=== PATIENT | female | born 1995 | race Caucasian/White ===

== ENCOUNTER 2016-12-04 09:36 | Emergency (ER) | payer SELFPAY ==
[2016-12-04 10:00] VITALS: TEMP 97.9; BMI 28.3
[2016-12-04] MEDS ORDERED: methylPREDNISolone NA SUCC 125 MG/2 ML VIAL IVPB ONE (10:34)
[2016-12-04] MEDS ORDERED: SODIUM CHLORIDE 1,000 ML IV STA (10:34)
--- NOTE | 2016-12-04 10:34 | PDOC ---
History of Present Illness - History of Present Illness Initial Comments: 12/04/16 10:43 Patient is a 21 year old female with significant medical hx of asthma who has been sent to the ED by Dr. Beal for cough and chest tightness for four days. Patient complains of cough with associated chest tightness and congestion that has worsened over the past several days. The patient states that her symptoms have made it difficult for her to talk. She endorses some chills and an episode of nausea and vomiting that occurred yesterday. The patient saw her PMD today in the office where she received O2 and albuterol. She was sent to the ED because her symptoms persist. Patient received the flu shot this year. Denies sick contacts, swelling. NKDA <Kinsey Cabrera - Last Filed: 12/04/16 12:39> <Nataly Chadwick - Last Filed: 12/04/16 17:09> - General Chief Complaint: Asthma Stated Complaint: ASTHMA Time Seen by Provider: 12/04/16 09:51 Past History <Kinsey Cabrera - Last Filed: 12/04/16 12:39> - Past Medical History Asthma: Yes - Psycho/Social/Smoking Cessation Hx Anxiety: No Suicidal Ideation: No Smoking History: Never smoked Have you smoked in the past 12 months: No Information on smoking cessation initiated: No Hx Alcohol Use: No Drug/Substance Use Hx: No Substance Use Type: None <Nataly Chadwick - Last Filed: 12/04/16 17:09> - Past Medical History Allergies/Adverse Reactions: Allergies Allergy/AdvReac Type Severity Reaction Status Date / Time No Known Allergies Allergy Verified 12/04/16 10:54 Home Medications: Ambulatory Orders Albuterol Sulfate Inhaler - [Ventolin HFA Inhaler -] 1 - 2 inh PO QID PRN #1 inhaler 12/04/16 Prednisone [Deltasone -] 40 mg PO DAILY #8 tablet 12/04/16 Review of Systems - Review of Systems Comments:: 12/04/16 10:43 GENERAL/CONSTITUTIONAL: No fever or chills. No weakness. HEAD, EYES, EARS, NOSE AND THROAT: No change in vision. No ear pain or discharge. No sore throat. CARDIOVASCULAR: Chest tightness. No shortness of breath. RESPIRATORY: Cough. No wheezing or hemoptysis. GASTROINTESTINAL: Nausea, vomiting. No diarrhea or constipation. MUSCULOSKELETAL: No joint or muscle swelling or pain. No neck or back pain. SKIN: No rash NEUROLOGIC: No headache, vertigo, loss of consciousness, or change in strength/ sensation. <RickKinsey heath - Last Filed: 12/04/16 12:39> *Physical Exam - Vital Signs Last Vital Signs Temp Pulse Resp BP Pulse Ox 97.9 F 115 H 24 130/65 100 12/04/16 09:53 12/04/16 09:53 12/04/16 09:53 12/04/16 09:53 12/04/16 09:53 <Kinsey Cabrera - Last Filed: 12/04/16 12:39> - Vital Signs Last Vital Signs Temp Pulse Resp BP Pulse Ox 97.9 F 115 H 24 130/65 100 12/04/16 09:53 12/04/16 09:53 12/04/16 09:53 12/04/16 09:53 12/04/16 09:53 - Physical Exam Comments: GENERAL: Awake, alert, and fully oriented, in no acute distress HEAD: No signs of trauma EYES: PERRLA, EOMI, sclera anicteric, conjunctiva clear ENT: Auricles normal inspection, hearing grossly normal, nares patent, oropharynx clear without exudates. Moist mucosa NECK: Normal ROM, supple, no lymphadenopathy, JVD, or masses LUNGS: Breath sounds equal, with scattered rhonchi. HEART: Tachycardic with regular rhythm, normal S1 and S2, no murmurs, rubs or gallops ABDOMEN: Soft, nontender, normoactive bowel sounds. No guarding, no rebound. No masses EXTREMITIES: Normal range of motion, no edema. No clubbing or cyanosis. No cords, erythema, or tenderness NEUROLOGICAL: Cranial nerves II through XII grossly intact. Normal speech, normal gait SKIN: Warm, Dry, normal turgor, no rashes or lesions noted. <Nataly Chadwick - Last Filed: 12/04/16 17:09> ED Treatment Course - LABORATORY CBC & Chemistry Diagram: 12/04/16 10:36 12/04/16 10:36 - RADIOLOGY Radiograph Interpretation: 12/04/16 12:39 Chest X-Ray Impression: No acute pathology. Weak inspiration with crowding. Reported By: Mu Garay MD <Kinsey Cabrera - Last Filed: 12/04/16 12:39> - LABORATORY CBC & Chemistry Diagram: 12/04/16 10:36 12/04/16 10:36 <Nataly Chadwick - Last Filed: 12/04/16 17:09> Medical Decision Making - Medical Decision Making 12/04/16 12:55 Pt reports improvement in her symptoms. Flu swab negative (and patient is afebrile), CXR no consolidation. Stable for DC home with short course of prednisone and albuterol. <Nataly Chadwick - Last Filed: 12/04/16 17:09> *DC/Admit/Observation/Transfer - Attestations Scribe Attestion: 12/04/16 10:47 Documentation prepared by Kinsey Cabrera, acting as certified ophthalmic medical technician for Nataly Chadwick MD. <Kinsey Cabrera - Last Filed: 12/04/16 12:39> - Discharge Dispostion Admit: No <Nataly Chadwick - Last Filed: 12/04/16 17:09> Diagnosis at time of Disposition: Asthma Qualifiers: Asthma severity: mild intermittent Asthma complication type: with acute exacerbation Qualified Code(s): J45.21 - Mild intermittent asthma with (acute) exacerbation - Discharge Dispostion Disposition: HOME Condition at time of disposition: Improved - Prescriptions Prescriptions: Prednisone [Deltasone -] 40 mg PO DAILY #8 tablet Albuterol Sulfate Inhaler - [Ventolin HFA Inhaler -] 1 - 2 inh PO QID PRN #1 inhaler PRN Reason: Short Of Breath/Wheezing - Referrals Referrals: Bryon Gongora MD [Primary Care Provider] - - Patient Instructions Printed Discharge Instructions: DI for Asthma -- Adult
[2016-12-04 11:01] LABS: BASOPHIL 0.2 % (0-2.0); EOSINOPHIL 1.3 % (0-4.5); MCH 29.4 pg (25.7-33.7); MCHC 32.8 g/dl (32.0-36.0); MEAN CELL VOLUME 89.4 fl (80-96); MEAN PLT VOLUME 9.6 fl (7.5-11.1); NEUTROPHILS 73.3 % (42.8-82.8); PLATELET COUNT 185 K/MM3 (134-434); RDW 13.5 % (11.6-15.6); WHITE BLOOD COUNT 11.4 K/mm3 (4.0-10.0)
[2016-12-04 11:27] LABS: ALBUMIN 3.7 g/dl (3.4-5.0); ALK PHOS 75 U/L (45-117); ANION GAP 10 (8-16); BILIRUBIN,TOTAL 0.2 mg/dL (0.2-1.0); CALCIUM 8.4 mg/dL (8.5-10.1); CO2 25 mmol/L (21-32); CREATININE 0.7 mg/dL (0.55-1.02); GLUCOSE,RANDOM 105 mg/dL (74-106); SGOT/AST 19 U/L (15-37); SGPT/ALT 35 U/L (12-78); TOT PROT 7.2 g/dl (6.4-8.2)
[2016-12-04] MEDS: ALBUTEROL SO4 2.5/IPRATROPIUM 0.5 INH SOL 3 ML VIAL.NEB. NEB SCH ×3 (11:30→11:44)
[2016-12-04] MEDS ORDERED: ALBUTEROL SO4 2.5/IPRATROPIUM 0.5 INH SOL 3 ML VIAL.NEB. NEB ONE (11:39)
[2016-12-04 13:06] VITALS: BP 104/60; PULSE 90
== END 2016-12-04 13:06 | disposition home or self-care (01) ==
LOC: JER 09:36
PROC: 3E0F7GC Introduction of Other Therapeutic Substance into Respiratory Tract, Via Natural or Artificial Opening (ICD-10-PCS; principal; 2016-12-04)
PROC: 3E0333Z Introduction of Anti-inflammatory into Peripheral Vein, Percutaneous Approach (ICD-10-PCS; 2016-12-04)
DX: J45.20 Mild intermittent asthma, uncomplicated (principal)
CPT/HCPCS: 36415; 71020-TC; 80053; 84703; 85025; 87804; 99282-25

== ENCOUNTER 2017-11-14 02:28 | Emergency (ER) | payer SELFPAY ==
[2017-11-14 02:45] VITALS: BP 116/83; PULSE 72; TEMP 97.8; BMI 29.4
[2017-11-14 03:32] LABS: URINE APPEARANCE CLEAR; URINE BILIRUBIN NEGATIVE (NEGATIVE); URINE BLOOD NEGATIVE (NEGATIVE); URINE COLOR COLORLESS; URINE GLUCOSE (UA) NEGATIVE (NEGATIVE); URINE KETONE NEGATIVE (NEGATIVE); URINE LEUK ESTERASE NEGATIVE (NEGATIVE); URINE NITRITE NEGATIVE (NEGATIVE); URINE PROTEIN NEGATIVE (NEGATIVE); URINE UROBILINOGEN NEGATIVE mg/dL (0.2-1.0)
--- NOTE | 2017-11-14 03:33 | PDOC ---
History of Present Illness - General Chief Complaint: Pain Stated Complaint: ABD PAIN Time Seen by Provider: 11/14/17 02:50 History Source: Patient Exam Limitations: No Limitations - History of Present Illness Initial Comments: CHIEF COMPLAINT: 22 y/o afebrile female c/o right sided abdominal pain today. HISTORY OF PRESENT ILLNESS: The patient states the pain started dull and gradually became sharp. She states the pain is intermittent and is holding her right flank while giving history. . She also admits to nausea. She denies f/c , v/d, CP, SOB, back pain, hematuria, dysuria. Vital signs on arrival are within normal limits. REVIEW OF SYSTEMS: GENERAL/CONSTITUTIONAL: No fever/chills. No weakness. No weight change. HEAD, EYES, EARS, NOSE AND THROAT: No change in vision. No ear pain or discharge. No sore throat. CARDIOVASCULAR: No chest pain or shortness of breath. RESPIRATORY: No cough, wheezing, or hemoptysis. GASTROINTESTINAL: +nausea. +right sided abdominal pain. No vomiting, diarrhea. GENITOURINARY: No dysuria, frequency, or change in urination. MUSCULOSKELETAL: No joint or muscle swelling or pain. No neck or back pain. SKIN: No rash or easy bruising. NEUROLOGIC: No headache, vertigo, loss of consciousness, or loss of sensation. PHYSICAL EXAM: GENERAL: The patient is awake, alert, and fully oriented, in no acute distress. She is well appearing and ambulatory. HEAD: Normal with no signs of trauma. ENT: Pupils equal, round and reactive to light, extraocular movements intact, sclera anicteric, conjunctiva clear. Neck supple. LUNGS: Clear to auscultation bilaterally. Normal excursion. No respiratory distress or use of accessory muscles. CV: RRR, S1/S2, no MRG. Cap refill < 2 sec. ABDOMEN: Soft, non-distended, TTP right flank and right pelvic region. No rebound, guarding or rigidity. Negative Rovsing's sign. Negative obturator sign. BACK: No CVA TTP b/l. EXTREMITIES: Normal range of motion, no edema. NEUROLOGICAL: Normal speech, normal gait. CN II-XII grossly intact. SKIN: Warm, dry, normal turgor, no rashes or lesions noted. Past History - Past Medical History Allergies/Adverse Reactions: Allergies Allergy/AdvReac Type Severity Reaction Status Date / Time No Known Allergies Allergy Verified 11/14/17 02:43 Home Medications: Ambulatory Orders NK [No Known Home Medication] 11/14/17 Asthma: Yes - Suicide/Smoking/Psychosocial Hx Smoking History: Never smoked Have you smoked in the past 12 months: No Information on smoking cessation initiated: No Hx Alcohol Use: No Drug/Substance Use Hx: No Substance Use Type: None *Physical Exam - Vital Signs Last Vital Signs Temp Pulse Resp BP Pulse Ox 97.8 F 72 14 116/83 100 11/14/17 02:43 11/14/17 02:43 11/14/17 02:43 11/14/17 02:43 11/14/17 02:43 ED Treatment Course - LABORATORY CBC & Chemistry Diagram: 11/14/17 03:33 11/14/17 03:33 Medical Decision Making - Medical Decision Making A/P: 22 y/o female with right flank, RLQ and right pelvic pain today. Plan is as follows: 1. UA/culture/hcg 2. Labs hcg - negative IV toradol ordered Patient states she feels much better after toradol. She also admits the pain continues to come and go. Gave results of her urine and labs Explained to her the risks vs benefits of a CT scan to r/o appendicitis. Suspicion is low given normal labs, afebrile, no vomiting and relatively benign abdominal exam. Suggested discharge to home with watchful waiting and the patient is in agreement. Suggested bland diet, plenty of fluids, tylenol or motrin for pain and return to the ER immediately with any worsening or concerning symptoms including fever, intractable vomiting or constant abdominal pain. The patient verbalizes understanding of all instructions, has no further questions and is awaiting discharge. *DC/Admit/Observation/Transfer Diagnosis at time of Disposition: Flank pain Abdominal pain Qualifiers: Abdominal location: unspecified location Qualified Code(s): R10.9 - Unspecified abdominal pain - Discharge Dispostion Disposition: HOME Condition at time of disposition: Improved - Referrals - Patient Instructions Printed Discharge Instructions: DI for Abdominal Pain-Adult, DI for Flank Pain , [place] Diet Additional Instructions: Discharge Instructions: -Follow bland diet for the next few days -Take tylenol or motrin for pain if needed -Drink plenty of fluids -Return to the ER immediately with any worsening or concerning symptoms, including but not limited to: fever, intractable vomiting, constant abdominal pain. - Post Discharge Activity
[2017-11-14] MEDS ORDERED: SODIUM CHLORIDE 1,000 ML IV STA (03:36)
[2017-11-14 03:41] LABS: BASO % 0.4 % (0-2.0); EOS % 6.5 % (0-4.5); HEMATOCRIT 38.9 % (32.4-45.2); HEMOGLOBIN 13.1 GM/dL (10.7-15.3); MCH 29.9 pg (25.7-33.7); MCHC 33.7 g/dl (32.0-36.0); MEAN CELL VOLUME 88.7 fl (80-96); MEAN PLT VOLUME 9.6 fl (7.5-11.1); NEUT % 48.1 % (42.8-82.8); PLATELET COUNT 226 K/MM3 (134-434); RBC 4.39 M/mm3 (3.60-5.2)
--- NOTE | 2017-11-14 03:44 | PDOC ---
*Physical Exam - Vital Signs Last Vital Signs Temp Pulse Resp BP Pulse Ox 97.8 F 72 14 116/83 100 11/14/17 02:43 11/14/17 02:43 11/14/17 02:43 11/14/17 02:43 11/14/17 02:43 ED Treatment Course - LABORATORY CBC & Chemistry Diagram: 11/14/17 03:33 11/14/17 03:33 - ADDITIONAL ORDERS Additional order review: Laboratory Results 11/14/17 00:31 Urine Color Colorless Urine Appearance Clear Urine pH 6.0 Ur Specific [place] 1.005 Urine Protein Negative Urine Glucose (UA) Negative Urine Ketones Negative Urine Blood Negative Urine Nitrite Negative Urine Bilirubin Negative Urine Urobilinogen Negative Ur Leukocyte Esterase Negative 11/14/17 03:33 RBC 4.39 MCV 88.7 MCHC 33.7 RDW 13.0 MPV 9.6 Neutrophils % 48.1 D Lymphocytes % 40.0 D Monocytes % 5.0 Eosinophils % 6.5 H D Basophils % 0.4 Medical Decision Making - Medical Decision Making 11/14/17 03:44 agree with care from BERHTA Rapp *DC/Admit/Observation/Transfer Diagnosis at time of Disposition: Abdominal pain, Flank pain - Discharge Dispostion Disposition: HOME Condition at time of disposition: Improved - Referrals - Patient Instructions Printed Discharge Instructions: [place] Diet, DI for Abdominal Pain-Adult, DI for Flank Pain Additional Instructions: Discharge Instructions: -Follow bland diet for the next few days -Take tylenol or motrin for pain if needed -Drink plenty of fluids -Return to the ER immediately with any worsening or concerning symptoms, including but not limited to: fever, intractable vomiting, constant abdominal pain. - Post Discharge Activity
[2017-11-14 03:45] LABS: HCG,QUALITATIVE URINE NEGATIVE
[2017-11-14 04:08] LABS: ALBUMIN 3.5 g/dl (3.4-5.0); ANION GAP 9 (8-16); BILIRUBIN,TOTAL 0.1 mg/dL (0.2-1.0); BLOOD UREA NITROGEN 10 mg/dL (7-18); CALCIUM 7.7 mg/dL (8.5-10.1); CHLORIDE 106 mmol/L (98-107); CO2 26 mmol/L (21-32); CREATININE 0.7 mg/dL (0.55-1.02); GLUCOSE,RANDOM 96 mg/dL (74-106); SGOT/AST 18 U/L (15-37); SGPT/ALT 48 U/L (12-78); SODIUM 141 mmol/L (136-145); TOT PROT 6.7 g/dl (6.4-8.2)
[2017-11-14 04:09] LABS: ALK PHOS 73 U/L (45-117)
[2017-11-14] MEDS ORDERED: KETOROLAC TROMETHAMINE 30 MG/1 ML VIAL IVPUSH ONE (04:52)
[2017-11-14] MEDS ORDERED: KETOROLAC TROMETHAMINE 30 MG/1 ML VIAL ONE (05:00)
== END 2017-11-14 05:52 | disposition home or self-care (01) ==
LOC: JER 02:28
PROC: 3E0337Z Introduction of Electrolytic and Water Balance Substance into Peripheral Vein, Percutaneous Approach (ICD-10-PCS; principal; 2017-11-14)
PROC: 3E0333Z Introduction of Anti-inflammatory into Peripheral Vein, Percutaneous Approach (ICD-10-PCS; 2017-11-14)
DX: R10.31 Right lower quadrant pain (principal)
CPT/HCPCS: 36415; 80053; 81003; 84703; 85025; 87086; 99282-25; J7030

== ENCOUNTER 2018-05-13 17:37 | Inpatient (IN) | payer OTHER ==
--- NOTE | 2018-05-13 18:17 | PDOC ---
Rapid Medical Evaluation Chief Complaint: Pain, Acute Time Seen by Provider: 05/13/18 18:07 Medical Evaluation: Allergies Allergy/AdvReac Type Severity Reaction Status Date / Time No Known Allergies Allergy Verified 11/14/17 02:43 05/13/18 18:09 I have performed a brief in-person evaluation of this patient. The patient presents with a chief complaint of: RLQ pain since 3AM, sent from [facility] for CT- labs and US done with no noted pathology in Uterus/ ovaries/ Here to R/O APPY Pertinent physical exam findings: pale, Abd pain to lower quad with some rebound./ I have ordered the following: has labs with her, will order CT contrast, and UA/ UCG The patient will proceed to the ED for further evaluation. Discharge Disposition - Referrals Referrals: Suresh Brambila MD [Primary Care Provider] - - Patient Instructions - Post Discharge Activity
[2018-05-13 18:47] LABS: BASO % 0.2 % (0-2.0); EOS % 4.1 % (0-4.5); HEMATOCRIT 41.7 % (32.4-45.2); HEMOGLOBIN 13.7 GM/dL (10.7-15.3); LYMPH % 25.9 % (8-40); MCH 29.1 pg (25.7-33.7); MCHC 32.8 g/dl (32.0-36.0); MEAN CELL VOLUME 88.8 fl (80-96); MEAN PLT VOLUME 9.8 fl (7.5-11.1); MONO % 4.1 % (3.8-10.2); NEUT % 65.7 % (42.8-82.8); PLATELET COUNT 271 K/MM3 (134-434); RDW 13.4 % (11.6-15.6); WHITE BLOOD COUNT 12.3 K/mm3 (4.0-10.0)
[2018-05-13 18:51] LABS: HCG,QUALITATIVE URINE Negative
[2018-05-13 19:00] LABS: URINE APPEARANCE SLCLOUDY; URINE BILIRUBIN NEGATIVE (<2.0 mg/dL); URINE COLOR YELLOW; URINE GLUCOSE (UA) NEGATIVE (NEGATIVE); URINE KETONE TRACE (NEGATIVE); URINE NITRITE NEGATIVE (NEGATIVE); URINE UROBILINOGEN NEGATIVE mg/dL (0.2-1.0)
[2018-05-13 19:11] LABS: ALBUMIN 4.1 g/dl (3.4-5.0); ALK PHOS 86 U/L (45-117); ANION GAP 8 MMOL/L (8-16); BILIRUBIN,TOTAL 0.5 mg/dL (0.2-1.0); BLOOD UREA NITROGEN 11 mg/dL (7-18); CALCIUM 8.9 mg/dL (8.5-10.1); CHLORIDE 105 mmol/L (98-107); CO2 28 mmol/L (21-32); CREATININE 0.7 mg/dL (0.55-1.02); GLUCOSE,RANDOM 85 mg/dL (74-106); LIPASE 70 U/L (73-393); SGOT/AST 25 U/L (15-37); SGPT/ALT 61 U/L (12-78); SODIUM 141 mmol/L (136-145); TOT PROT 7.8 g/dl (6.4-8.2)
[2018-05-13 19:12] LABS: URINE LEUK ESTERASE 1+ (NEGATIVE); URINE PROTEIN 1+ (NEGATIVE)
[2018-05-13 19:14] LABS: EPI CELLS RARE /HPF (FEW); URINE BACTERIA RARE /hpf (NONE SEEN); URINE MUCUS RARE; YEAST FEW
[2018-05-13] MEDS ORDERED: SODIUM CHLORIDE 1,000 ML IV STA ×2 (19:37→23:23)
[2018-05-13] MEDS ORDERED: ACETAMINOPHEN 1000 MG/100 ML VIAL (NON FORMULARY) IVPB ONE (19:39)
--- NOTE | 2018-05-13 19:41 | PDOC ---
Attending Attestation - Resident Resident Name: Hesham Ricketts - ED Attending Attestation I have performed the following: I have examined & evaluated the patient, The case was reviewed & discussed with the resident, I agree w/resident's findings & plan, Exceptions are as noted - HPI HPI: 05/13/18 19:37 22 yo F who is otherwise healthy presenting to the ER with a complaint of RLQ pain Radiating to RL back Started at 3am Initially 6/10 now 8/10 Nausea, vomiting, no diarrhea Recent UTI, denies hematuria, pyuria Seen at an Urgent care s/p US with was negative - Physicial Exam PE: 05/13/18 19:37 GENERAL: The patient is in no acute distress. LUNGS: Breath sounds equal, clear to auscultation bilaterally. No wheezes, and no crackles. HEART:Regular rate and rhythm, normal S1 and S2 without murmur, rub or gallop. ABDOMEN: Soft, RLQ tenderness to palpation, no involuntary guarding or rebound EXTREMITIES: Normal range of motion, no edema. No clubbing or cyanosis. No erythema, or tenderness. NEUROLOGICAL: Cranial nerves II through XII grossly intact. Normal speech. No focal neurological deficits. MUSCULOSKELETAL: Back non-tender to palpation, no CVA tenderness SKIN: Warm, Dry, normal turgor, no rashes or lesions noted. - Medical Decision Making 05/13/18 19:39 22 yo F presenting with a complaint of RLQ pain No fevers or chills No urinary symptoms to suggest UTI, Pyelonephtiris, Kidney stone No to suggest Ectopic R/o Appendicitis 05/13/18 19:41 Laboratory Tests 05/13/18 05/13/18 05/13/18 18:20 18:20 18:20 WBC 12.3 H Hgb 13.7 Hct 41.7 Plt Count 271 BUN 11 Creatinine 0.7 Urine Blood 1+ H Urine Nitrite Negative Ur Leukocyte Esterase 1+ H Urine WBC (Auto) 39 Urine RBC (Auto) 37 Urine HCG, Qual Negative Pending CT 05/13/18 23:22 CT demonstrates possible early acute appendicitis Dr Heraclio Westfall consulted re: this case and is aware of this patient Call placed to Hospitalist Clinical Impression: Acute Appendicitis, initial presentation
[2018-05-13] MEDS ORDERED: ACETAMINOPHEN INJECTION 100 ML IVPB ONE (20:39)
--- NOTE | 2018-05-13 20:53 | PDOC ---
History of Present Illness - General Chief Complaint: Pain, Acute Stated Complaint: SENT BY PCP Time Seen by Provider: 05/13/18 18:07 History Source: Patient Exam Limitations: No Limitations - History of Present Illness Initial Comments: 05/13/18 21:47 Ms. Sotelo is a 22 yo F with a no pmhx presents to the emergency department with RLQ pain that has been ongoing since 3am today. She states the pain has been progressively worsening and now has radiation to her right lower back. Quality is described as 8/10 sharp pain without aggravating and relieving factors. She had a UTI last that was treated with OTC medications. Endorses the following: nausea and vomiting 2x episodes today without hematemesis. Denies the following: fever, chills, dizziness, lightheadedness, headache, SOB, chest pain, diarrhea, dysuria, hematuria, melena, and leg pain/ swelling. Pmhx: None Shx: None Allergies: NKDA Medications: None Social hx: Denies tobacco, alcohol, and substance use. 05/13/18 21:51 Past History - Past Medical History Allergies/Adverse Reactions: Allergies Allergy/AdvReac Type Severity Reaction Status Date / Time No Known Allergies Allergy Verified 11/14/17 02:43 Home Medications: Ambulatory Orders Albuterol Sulfate Inhaler - [Ventolin Hfa Inhaler -] 1 - 2 inh PO Q4H 05/13/18 Anemia: No Asthma: Yes Cancer: No Cardiac Disorders: No CVA: No COPD: No DVT: No Dementia: No Diabetes: No Dialysis: No GI Disorders: No Disorders: No HTN: No Hypercholesterolemia: No Kidney Stones: No Liver Disease: No Psychiatric Problems: No Seizures: No Thyroid Disease: No Lung CA: No - Suicide/Smoking/Psychosocial Hx Smoking History: Never smoked Have you smoked in the past 12 months: No Hx Alcohol Use: No Drug/Substance Use Hx: No Substance Use Type: None Review of Systems - Review of Systems Able to Perform ROS?: Yes Constitutional: No: Chills, Diaphoresis, Fever, Night Sweats, Weakness HEENTM: No: Recent change in vision, Ear Pain, Nose Pain, Throat Pain, Mouth Pain Respiratory: No: Cough, Shortness of Breath Cardiac (ROS): No: Chest Pain, Lightheadedness, Palpitations, Syncope, Chest Tightness ABD/GI: Yes: Nausea, Vomiting (watery), Abdominal cramping. No: Constipated, Diarrhea, Poor Fluid Intake, Rectal Bleeding, Tarry Stools : Yes: Flank Pain (right). No: Burning, Dysuria, Hematuria Musculoskeletal: No: Back Pain Integumentary: No: Flushing, Lesions, Lumps, Rash Neurological: No: Headache, Numbness, Paresthesia, Tingling, Tremors, Weakness, Dizziness Psychiatric: No: Stressors Endocrine: No: Unexplained Weight Loss Hematologic/Lymphatic: No: Anemia *Physical Exam - Vital Signs Last Vital Signs Temp Pulse Resp BP Pulse Ox 98.8 F 85 20 124/79 97 05/13/18 18:11 05/13/18 18:11 05/13/18 18:11 05/13/18 18:11 05/13/18 18:11 - Physical Exam General Appearance: Yes: Nourished, Appropriately Dressed HEENT: positive: EOMI, LYNN Neck: positive: Trachea midline. negative: Lymphadenopathy (R), Lymphadenopathy (L) Respiratory/Chest: positive: Lungs Clear, Normal Breath Sounds. negative: Chest Tender, Respiratory Distress, Accessory Muscle Use, Rales, Rhonchi, Stridor, Wheezing Cardiovascular: positive: Regular Rhythm, Regular Rate, S1, S2. negative: Systolic Murmur Vascular Pulses: Dorsalis-Pedis (R): 3+, Doralis-Pedis (L): 3+ Gastrointestinal/Abdominal: positive: Normal Bowel Sounds, Tender (RLQ ttp. negative rosvings, obturator sign) Lymphatic: negative: Adenopathy Musculoskeletal: positive: Normal Inspection. negative: CVA Tenderness Extremity: positive: Normal Capillary Refill, Normal Inspection, Normal Range of Motion. 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, Fully Oriented, Alert, Normal Mood/ Affect, Normal Response, Motor Strength /5 ED Treatment Course - LABORATORY CBC & Chemistry Diagram: 05/14/18 07:08 05/14/18 07:08 - ADDITIONAL ORDERS Additional order review: Laboratory Results 05/13/18 05/13/18 18:20 18:20 Sodium 141 Potassium 4.0 Chloride 105 Carbon Dioxide 28 Anion Gap 8 BUN 11 Creatinine 0.7 Creat Clearance w eGFR > 60 Random Glucose 85 Calcium 8.9 Total Bilirubin 0.5 AST 25 ALT 61 Alkaline Phosphatase 86 Total Protein 7.8 Albumin 4.1 Lipase 70 L Urine Color Yellow Urine Appearance Slcloudy Urine pH 6.0 Ur Specific [place] 1.017 Urine Protein 1+ H Urine Glucose (UA) Negative Urine Ketones Trace H Urine Blood 1+ H Urine Nitrite Negative Urine Bilirubin Negative Urine Urobilinogen Negative Ur Leukocyte Esterase 1+ H Urine WBC (Auto) 39 Urine RBC (Auto) 37 Ur Epithelial Cells Rare Urine Bacteria Rare Urine Mucus Rare Urine Yeast Few Urine HCG, Qual Negative 05/13/18 18:20 RBC 4.70 MCV 88.8 MCHC 32.8 RDW 13.4 MPV 9.8 Neutrophils % 65.7 D Lymphocytes % 25.9 D Monocytes % 4.1 Eosinophils % 4.1 Basophils % 0.2 - Medications Given in the ED: ED Medications Discontinued Medications Generic Name Dose Route Start Last Admin Trade Name Freq PRN Reason Stop Dose Admin Acetaminophen 1,000 mg 05/13/18 19:39 05/13/18 20:47 Ofirmev Injection - IVPB 05/13/18 19:40 1,000 mg ONCE ONE Administration Sodium Chloride 1,000 mls @ 1,000 mls/hr 05/13/18 19:37 05/13/18 20:47 Normal Saline - IV 05/13/18 20:36 1,000 mls/hr ASDIR STA Administration Medical Decision Making - Medical Decision Making 05/13/18 22:07 22 yo F with no pmhx presents with RLQ pain with ttp in that region. Initial vitals: Initial Vital Signs Temp Pulse Resp BP Pulse Ox 98.8 F 85 20 124/79 97 05/13/18 18:11 05/13/18 18:11 05/13/18 18:11 05/13/18 18:11 05/13/18 18:11 ddx: appendicitis, ileitis, ovarian torsion, ovarian cyst, ectopic, PID, UTI, nephrolithiasis, msk pain Work up: Laboratory Tests 05/13/18 05/13/18 05/13/18 18:20 18:20 18:20 WBC 12.3 H RBC 4.70 Hgb 13.7 Hct 41.7 MCV 88.8 MCH 29.1 MCHC 32.8 RDW 13.4 Plt Count 271 MPV 9.8 Absolute Neuts (auto) 8.1 H Neutrophils % 65.7 D Lymphocytes % 25.9 D Monocytes % 4.1 Eosinophils % 4.1 Basophils % 0.2 Nucleated RBC % 0 PT with INR INR Sodium 141 Potassium 4.0 Chloride 105 Carbon Dioxide 28 Anion Gap 8 BUN 11 Creatinine 0.7 Creat Clearance w eGFR > 60 Random Glucose 85 Calcium 8.9 Total Bilirubin 0.5 AST 25 ALT 61 Alkaline Phosphatase 86 Total Protein 7.8 Albumin 4.1 Lipase 70 L Urine Color Yellow Urine Appearance Slcloudy Urine pH 6.0 Ur Specific [place] 1.017 Urine Protein 1+ H Urine Glucose (UA) Negative Urine Ketones Trace H Urine Blood 1+ H Urine Nitrite Negative Urine Bilirubin Negative Urine Urobilinogen Negative Ur Leukocyte Esterase 1+ H Urine WBC (Auto) 39 Urine RBC (Auto) 37 Ur Epithelial Cells Rare Urine Bacteria Rare Urine Mucus Rare Urine Yeast Few Urine HCG, Qual Negative Blood Type Antibody Screen 05/13/18 05/13/18 22:10 22:10 WBC RBC Hgb Hct MCV MCH MCHC RDW Plt Count MPV Absolute Neuts (auto) Neutrophils % Lymphocytes % Monocytes % Eosinophils % Basophils % Nucleated RBC % PT with INR 13.00 INR 1.15 H Sodium Potassium Chloride Carbon Dioxide Anion Gap BUN Creatinine Creat Clearance w eGFR Random Glucose Calcium Total Bilirubin AST ALT Alkaline Phosphatase Total Protein Albumin Lipase Urine Color Urine Appearance Urine pH Ur Specific [place] Urine Protein Urine Glucose (UA) Urine Ketones Urine Blood Urine Nitrite Urine Bilirubin Urine Urobilinogen Ur Leukocyte Esterase Urine WBC (Auto) Urine RBC (Auto) Ur Epithelial Cells Urine Bacteria Urine Mucus Urine Yeast Urine HCG, Qual Blood Type A POSITIVE Antibody Screen Negative CT showed possibly early acute appendicitis. Transvaginal US showed no ovarian pathologies (this was done at [facility] urgent care) save for bicornuate uterus. We consulted Dr. Westfall for surgery and he accepted the case and asked for no antibiotics and to be admitted. Given 1 g of tylenol and 1 L of NS. Pt understands the plan and agrees. Dispo: admit *DC/Admit/Observation/Transfer Diagnosis at time of Disposition: Appendicitis Qualifiers: Appendicitis type: acute appendicitis Acute appendicitis type: unspecified acute appendicitis type Qualified Code(s): K35.80 - Unspecified acute appendicitis - Discharge Dispostion Decision to Admit order: Yes - Referrals - Patient Instructions - Post Discharge Activity
[2018-05-13 22:32] LABS: INR 1.15 (0.83-1.09)
[2018-05-13] MEDS ORDERED: PIPERACILLIN/TAZOB 4.5 GM 4.5 GM in DEXTROSE 5%-WATER 100 ML IVPB ONE (23:23)
--- NOTE | 2018-05-13 23:33 | PN ---
Teaching Attending Note Name of Resident: Beverly Arthur ATTENDING PHYSICIAN STATEMENT I saw and evaluated the patient. I reviewed the resident's note and discussed the case with the resident. I agree with the resident's findings and plan as documented. SUBJECTIVE: Patient is a 22 year old woman with no significant PMH who presents to the ER with RLQ pain that has been ongoing since 3am today. She states the pain has been progressively worsening and now has radiation to her right lower back. Quality is described as 8/10 sharp pain without aggravating and relieving factors. She had a UTI last that was treated with cranberry extract. In November 2017 she was in the ER with complaint of similar RLQ pain and was given an analgesic and discharged from the ER. She has nausea and vomited twice today. LMP was earlier this month but does not remember the exact date. Denies fever, chills, diarrhea or dysuria. No abnormal vaginal discharge. OBJECTIVE: Alert Vital Signs Period Temp Pulse Resp BP Sys/[place] Pulse Ox Last 24 Hr 98.8 F 85 20 124/79 97 HEENT: No Jaundice, eye redness or discharge, PERRLA, EOMI. Normocephalic, atraumatic. External ears are normal and hearing is grossly intact. No nasal discharge. Neck: Supple, nontender. No palpable adenopathy or thyromegaly. No JVD Chest: Good effort. Clear to auscultation and percussion. Heart: Regular. No S3, rub or murmur Abdomen: Not distended, soft, RLQ tenderness and no HSM. No rebound or guarding. Normoactive bowel sounds. Ext: Peripheral pulses intact. No leg edema. Skin: Warm and dry. No petechiae, rash or ecchymosis. Neuro: Alert. Oriented x3. CN 2-12 grossly intact. Sensation grossly intact in all four extremities and DTR are symmetric. Pelvic exam: No cervical motion tenderness. Has a cheesy white discharge but not foul smelling. Current Medications Generic Name Dose Route Start Last Admin Trade Name Freq PRN Reason Stop Dose Admin Piperacillin Sod/Tazobactam 100 mls @ 200 mls/hr 05/13/18 23:23 Sod 4.5 gm/ Dextrose IVPB 05/13/18 23:52 ONCE ONE Protocol Sodium Chloride 1,000 mls @ 125 mls/hr 05/13/18 23:23 Normal Saline - IV 05/14/18 07:22 ASDIR STA Home Medications Medication Instructions Recorded Albuterol Sulfate Inhaler - 1 - 2 inh PO Q4H 05/13/18 [Ventolin Hfa Inhaler -] Abnormal Lab Results 05/13/18 05/13/18 05/13/18 18:20 18:20 18:20 WBC 12.3 H Absolute Neuts (auto) 8.1 H INR Lipase 70 L Urine Protein 1+ H Urine Ketones Trace H Urine Blood 1+ H Ur Leukocyte Esterase 1+ H 05/13/18 22:10 WBC Absolute Neuts (auto) INR 1.15 H Lipase Urine Protein Urine Ketones Urine Blood Ur Leukocyte Esterase ASSESSMENT AND PLAN: 1. UTI/Appendicitis? - CT scan of the abdomen shows possible early appendicitis. Surgeon consulted and recommended withholding antibiotics for now. Will be evaluated by surgeon in the morning. Has features of UTI and will treat with Rocephin after patient is evaluated by surgeon. Got one dose of Zosyn 4.5 gm in the ER. Cultures sent for chlamydia and gonorrhea to rule out PID. Significance of retroperitoneal and mesenteric adenopathy is unclear. Also has ?idiopathic hepatic steatosis. Will consult hematology, GI and ID. 2. Obesity - Will provide patient all the necessary assistance, counseling and positive reinforcement to facilitate weight loss. Consult selector packer. 3. DVT prophylaxis - Lovenox 40 mg SQ q 24 hours. 4. Advance directives - Full code
[2018-05-13] MEDS ORDERED: PIPERACILLIN/TAZOB 4.5 GM 4.5 GM/100 ML BAG IVPB ONE (23:53)
[2018-05-14] MEDS ORDERED: ACETAMINOPHEN 1000 MG/100 ML VIAL (NON FORMULARY) IVPB PRN ×2 (00:45→11:54)
[2018-05-14] MEDS ORDERED: MORPHINE SULFATE 2 MG/ML VIAL IVPUSH PRN (00:46)
--- NOTE | 2018-05-14 02:38 | HP ---
CHIEF COMPLAINT: RLQ Abdominal Pain PCP: HISTORY OF PRESENT ILLNESS: 22 y/o female with PMHx of Asthma presents, along side her boyfriend, for Abdominal Pain. Patient says she was awoken at 3am with Sharp, Throbbing, 8/ 10 RLQ pain that radiated to the Right lower back. This morning, she also experienced Chills, Nausea accompanied with brown vomit. This is the first time she has experienced this pain. She says the pain has been worsening and she visited [facility] where labs were drawn and TVUS was done. At that time, the Urgent care was concerned for possible appendicitis and suggested patient visit [facility] ED. Her pain is currently 6/10. Patient has been unable to identify any triggers. Her last meal was yesterday and she has not been able to tolerate PO intake today. Otherwise she denies any other dietary changes. Her Last BM was this morning. Patient says her LMP ended early in April. She is sexually active with 1 partner and they do not use contraception. She denies any hx of STI/STDs and mentions she was tested a few months ago. She has had an x1 in the past , years ago. Of note, patient has been treating burning with urination since last with OTC Azo (Phenazopyridine HCl). She currently denies any Dysuria, hematuria , Urinary frequency or urgency. She mentions she had a UTI one year ago which self resolved without intervention. 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) Residence: At home with her boyfriend and his family Ambulation: On her own Family History: Mothers side: Cancer (Ovarian, Breast, Stomach), DM, HTN Allergies No Known Allergies Allergy (Verified 11/14/17 02:43) HOME MEDICATIONS: Home Medications Medication Instructions Recorded Albuterol Sulfate Inhaler - 1 - 2 inh PO Q4H 05/13/18 [Ventolin Hfa Inhaler -] REVIEW OF SYSTEMS CONSTITUTIONAL: Absent: fever, chills, diaphoresis, generalized weakness, malaise, loss of appetite, weight change HEENT: Absent: rhinorrhea, nasal congestion, throat pain, throat swelling, difficulty swallowing, mouth swelling, ear pain, eye pain, visual changes CARDIOVASCULAR: Absent: chest pain, syncope, palpitations, irregular heart rate, lightheadedness , peripheral edema RESPIRATORY: Absent: cough, shortness of breath, dyspnea with exertion, orthopnea, wheezing, stridor, hemoptysis GASTROINTESTINAL: Present: abdominal pain, nausea, vomiting, Absent: abdominal distension, diarrhea, constipation, melena, hematochezia GENITOURINARY: Absent: dysuria, frequency, urgency, hesitancy, hematuria, flank pain, genital pain MUSCULOSKELETAL: Absent: myalgia, arthralgia, joint swelling, back pain, neck pain SKIN: Absent: rash, itching, pallor HEMATOLOGIC/IMMUNOLOGIC: Absent: easy bleeding, easy bruising, lymphadenopathy, frequent infections ENDOCRINE: Absent: unexplained weight gain, unexplained weight loss, heat intolerance, cold intolerance NEUROLOGIC: Absent: headache, focal weakness or paresthesias, dizziness, unsteady gait, seizure, mental status changes, bladder or bowel incontinence PSYCHIATRIC: Absent: anxiety, depression, suicidal or homicidal ideation, hallucinations. PHYSICAL EXAMINATION Vital Signs - 24 hr 05/13/18 05/14/18 18:11 00:59 Temperature 98.8 F 97.9 F Pulse Rate 85 Pulse Rate [ 69 Right Radial] Respiratory 20 16 Rate Blood Pressure 124/79 Blood Pressure 96/57 [Left Arm] O2 Sat by Pulse 97 97 Oximetry (%) GENERAL: Awake, alert, and fully oriented, in no acute distress. HEAD: NCAT EYES: PERRL, EOMI THROAT: Oropharynx clear without exudates. Moist mucous membranes. NECK: No JVD LUNGS: Breath sounds equal, clear to auscultation bilaterally. No wheezes HEART: Regular rate and rhythm, normal S1 and S2 without murmur ABDOMEN: Soft, RLQ Tender to palpation , not distended, + bowel sounds, no guarding, no rebound tenderness, Negative Rovsings sign, Negative Psoas sign MUSCULOSKELETAL: No CVA tenderness. PELVIC EXAM: No Erythema in Vaginal vault, White exudate seen, No cervical motion tenderness, Uterus anteverted and Anteflexed EXTREMITIES: 2+ pulses, No calf tenderness. No peripheral edema. SKIN: Warm, dry, normal turgor, no rashes or lesions noted, normal capillary refill. Laboratory Results - last 24 hr 05/13/18 05/13/18 05/13/18 18:20 18:20 18:20 WBC 12.3 H RBC 4.70 Hgb 13.7 Hct 41.7 MCV 88.8 MCH 29.1 MCHC 32.8 RDW 13.4 Plt Count 271 MPV 9.8 Absolute Neuts (auto) 8.1 H Neutrophils % 65.7 D Lymphocytes % 25.9 D Monocytes % 4.1 Eosinophils % 4.1 Basophils % 0.2 Nucleated RBC % 0 PT with INR INR Sodium 141 Potassium 4.0 Chloride 105 Carbon Dioxide 28 Anion Gap 8 BUN 11 Creatinine 0.7 Creat Clearance w eGFR > 60 Random Glucose 85 Calcium 8.9 Total Bilirubin 0.5 AST 25 ALT 61 Alkaline Phosphatase 86 Total Protein 7.8 Albumin 4.1 Lipase 70 L Urine Color Yellow Urine Appearance Slcloudy Urine pH 6.0 Ur Specific [place] 1.017 Urine Protein 1+ H Urine Glucose (UA) Negative Urine Ketones Trace H Urine Blood 1+ H Urine Nitrite Negative Urine Bilirubin Negative Urine Urobilinogen Negative Ur Leukocyte Esterase 1+ H Urine WBC (Auto) 39 Urine RBC (Auto) 37 Ur Epithelial Cells Rare Urine Bacteria Rare Urine Mucus Rare Urine Yeast Few Urine HCG, Qual Negative Blood Type Antibody Screen 05/13/18 05/13/18 22:10 22:10 WBC RBC Hgb Hct MCV MCH MCHC RDW Plt Count MPV Absolute Neuts (auto) Neutrophils % Lymphocytes % Monocytes % Eosinophils % Basophils % Nucleated RBC % PT with INR 13.00 INR 1.15 H Sodium Potassium Chloride Carbon Dioxide Anion Gap BUN Creatinine Creat Clearance w eGFR Random Glucose Calcium Total Bilirubin AST ALT Alkaline Phosphatase Total Protein Albumin Lipase Urine Color Urine Appearance Urine pH Ur Specific [place] Urine Protein Urine Glucose (UA) Urine Ketones Urine Blood Urine Nitrite Urine Bilirubin Urine Urobilinogen Ur Leukocyte Esterase Urine WBC (Auto) Urine RBC (Auto) Ur Epithelial Cells Urine Bacteria Urine Mucus Urine Yeast Urine HCG, Qual Blood Type A POSITIVE Antibody Screen Negative ASSESSMENT/PLAN: 22 y/o female with PMHx of Asthma presents for Sharp, Throbbing, 8/10 RLQ pain that radiated to the Right lower back will be Admitted for possible Early Appendicitis. 1. RLQ Pain - Possibly due to her current UTI vs Early Appendicitis - CT A/P: Appendiceal wall demonstrates an equivocal, slightly hyperemic appearance - ObGyn (Dr. Landeros) consulted - Surgery (Dr. Westfall) Consulted, Recommended to ED to hold ABx for now and he will see her in the morning - Kept NPO for Pending surgical evaluation - Was given one dose Zosyn in the ED, Can consider Rocephin to treat UTI once surgery clears - Chlamydia, Gonorrhea cultures pending - Pain control via Tylenol (1-5) and Morphine (6-10) 2. FEN - PO Fluids - Lytes wnl - NPO for possible procedure in AM 3. PPx - DVT: Lovenox Dispo: Admit to med-surg Visit type - Emergency Visit Emergency Visit: Yes ED Registration Date: 05/13/18 Care time: The patient presented to the Emergency Department on the above date and was hospitalized for further evaluation of their emergent condition. - New Patient This patient is new to me today: Yes Date on this admission: 05/14/18 - Critical Care Critical Care patient: No Hospitalist Screening - Colonoscopy Questionnaire Colonoscopy Questionnaire: Colonoscopy Questionnaire - Patient: 50 - 75 years old and never had a screening colonoscopy: Unknown History of colon or rectal polyps, or CA: Unknown History of IBD, Crohn's disease or UC: Unknown History of abdominal radiation therapy as a child: Unknown - Relative: 1 with colon or rectal CA, or polyps at age 60 or younger: Unknown Colon or rectal CA diagnosed at age 45 or younger: Unknown Multiple relatives with colon or rectal CA: Unknown - Outcome: Screening Result: Negative Screen
[2018-05-14 07:33] LABS: BASO % 0.4 % (0-2.0); EOS % 6.2 % (0-4.5); HEMATOCRIT 37.7 % (32.4-45.2); HEMOGLOBIN 12.4 GM/dL (10.7-15.3); LYMPH % 29.6 % (8-40); MCH 29.2 pg (25.7-33.7); MCHC 32.8 g/dl (32.0-36.0); MEAN PLT VOLUME 10.4 fl (7.5-11.1); NEUT % 57.8 % (42.8-82.8); PLATELET COUNT 203 K/MM3 (134-434); RBC 4.24 M/mm3 (3.60-5.2); RDW 13.6 % (11.6-15.6); WHITE BLOOD COUNT 9.7 K/mm3 (4.0-10.0)
--- NOTE | 2018-05-14 07:45 | PN ---
Progress Note (short form) - Note Progress Note: pt admitted with above findings. No tool marker issues. Repeat TVUS if warranted
[2018-05-14 07:53] LABS: ALBUMIN 3.1 g/dl (3.4-5.0); ANION GAP 7 MMOL/L (8-16); BLOOD UREA NITROGEN 9 mg/dL (7-18); CHLORIDE 108 mmol/L (98-107); CO2 27 mmol/L (21-32); CREATININE 0.7 mg/dL (0.55-1.02); GLUCOSE,RANDOM 85 mg/dL (74-106); MAGNESIUM 2.2 mg/dL (1.8-2.4); PHOSPHOROUS 4.3 mg/dL (2.5-4.9); SGOT/AST 25 U/L (15-37); SGPT/ALT 47 U/L (12-78); SODIUM 142 mmol/L (136-145)
[2018-05-14 07:54] LABS: ALK PHOS 76 U/L (45-117); BILIRUBIN,TOTAL 0.6 mg/dL (0.2-1.0); TOT PROT 6.3 g/dl (6.4-8.2)
[2018-05-14] MEDS ORDERED: PIPERACILLIN/TAZOB 3.375 GM 3.375 GM in DEXTROSE 5%-WATER - 50 ML IVPB ONE (08:19)
[2018-05-14] MEDS ORDERED: ONDANSETRON 4 MG/2 ML VIAL IVPUSH PRN ×2 (08:49→09:56)
[2018-05-14] MEDS ORDERED: LACTATED RINGERS SOLUTION 1,000 ML IV SCH (09:00)
[2018-05-14] MEDS ORDERED: PIPERACILLIN/TAZOB 3.375 GM 3.375 GM/50 ML BAG IVPB ONE (09:12)
[2018-05-14] MEDS ORDERED: BUPIVACAINE HCL/PF 0.75% 10 ML VIAL ONE (09:13)
[2018-05-14] MEDS ORDERED: PROPOFOL 20 ML ONE (09:28)
[2018-05-14] MEDS ORDERED: MIDAZOLAM HCL 2 MG/2 ML SINGLE DOSE VIAL ONE (09:28)
[2018-05-14] MEDS ORDERED: ROCURONIUM BROMIDE 50 MG/5 ML VIAL ONE (09:28)
[2018-05-14] MEDS ORDERED: fentaNYL CITRATE 250 MCG/5 ML VIAL ONE (09:28)
--- NOTE | 2018-05-14 09:45 | PN ---
Progress Note (short form) - Note Progress Note: surgery pt seen and examined. full consult dictated. 22f rlq, nausea, leukocytosis, and ct showing abnormal appendix with hyperemia and 6mm. on exam rlq tenderness. wbc now normal after zosyn. mild uti. plan- likely early, appendicitis already improving on zosyn. pt agreable to surgery. will restart zosyn. for surgery. pt understands risk that appendix will be normal.
[2018-05-14] MEDS ORDERED: ALBUTEROL SO4 8 GM HFA INHALER IH PRN ×3 (09:53→16:47)
[2018-05-14] MEDS ORDERED: ACETAMINOPHEN 325 MG TABLET (FP) PO PRN (09:56)
[2018-05-14] MEDS ORDERED: oxyCODONE HCL 5 MG TABLET PO PRN (09:56)
[2018-05-14] MEDS ORDERED: ENOXAPARIN NA (PORCINE) 40 MG/0.4 ML DISP.SYRIN SQ SCH (10:00)
[2018-05-14] MEDS ORDERED: PIPERACILLIN/TAZOBACTAM 3.375 GM VIAL IVPB ONE (10:00)
--- NOTE | 2018-05-14 10:00 | OP ---
Operative Note - Note: Operative Date: 05/14/18 Pre-Operative Diagnosis: early acute appendicitis Operation: laparoscopic appedectomy Findings: mildly inflamed appendix Post-Operative Diagnosis: Same as Pre-op Surgeon: Mu Pisano Anesthesiologist/HAND COUNTER: Delio Luna Anesthesia: General Specimens Removed: appendix Estimated Blood Loss (mls): 10 Operative Report Dictated: Yes
[2018-05-14] MEDS ORDERED: DEXAMETHASONE SOD PHOSPHATE 4 MG/1 ML VIAL ONE (10:10)
[2018-05-14] MEDS ORDERED: NEOSTIGMINE METHYLSULFATE 0.5 MG/ML - 10 ML MDV ONE (10:34)
--- NOTE | 2018-05-14 10:50 | CONS ---
DATE OF CONSULTATION: 05/14/2018 REASON FOR CONSULTATION: Acute appendicitis. REQUESTING PHYSICIAN: This is an emergency room consultation requested by the emergency room physician. The patient was seen and examined in the emergency room. BRIEF HISTORY: This is a 22-year-old female without significant past medical history, who presents with 1-day right lower quadrant pain and nausea. She was sent from an urgent care center to the [facility] Emergency Room to rule out appendicitis. She was noted to have an elevated white blood cell count of 12,000, and had a CT scan of her abdomen and pelvis, which was showing a hyperemic 6-mm appendix, which could be consistent with early appendicitis. She was given antibiotic in the emergency room last night. Currently, she feels a little bit better, but not completely resolved, and her white blood cell count has returned to normal. She has had no fever. She still has decreased appetite. PAST MEDICAL HISTORY: Significant for asthma. PAST SURGICAL HISTORY: Nil. SOCIAL HISTORY: Positive for occasional alcohol consumption. FAMILY HISTORY: Negative for malignancy in the immediate family. ALLERGIES: She has no known drug allergies. HOME MEDICATIONS: Include albuterol. REVIEW OF SYSTEMS: General: Denies fatigue or malaise. Cardiac: Denies chest pain or palpitations. Respiratory: Denies shortness of breath or wheeze. Gastrointestinal: Denies diarrhea. Denies blood in her stool. Denies recent weight loss. Genitourinary: Denies dysuria. Musculoskeletal: Denies joint pain or joint swelling. Psychiatric: Denies anxiety, depression, or hearing voices. PHYSICAL EXAMINATION: General: This is an obese 22-year-old female in no distress. Vital signs: She is afebrile. Her vital signs are stable. HEENT: Her head is normocephalic. Her sclerae are anicteric. Neck: Supple. Chest: Clear. Abdomen: Soft. He has minimal right lower quadrant tenderness without guarding. She has perhaps a small ventral hernia at the central portion of her abdomen. Extremities: Have no edema. REVIEW OF LABORATORY DATA: White blood cell count is elevated at 12.3 with a shift of 8.1 absolute neutrophils. This morning, her labs are normal, but that was after receiving Zosyn antibiotic. On review of her, she has a CT scan of her abdomen and pelvis which the hole filler opines that there is a possibility of early subtle acute appendicitis. ASSESSMENT: This is a 22-year-old female with right lower quadrant pain, right lower quadrant tenderness, initial leukocytosis responding to intravenous antibiotic, and CT scan evidence of an abnormal appendix. Clinically, I cannot rule out early appendicitis, being treated on Zosyn. Obviously there is multiple differential in a young female. She does have a urinalysis that is consistent with a mild urinary tract infection, but I cannot place all of her symptoms on that. At this point, since I cannot rule out appendicitis, I have offered the patient surgery and she is agreeable. The advantage of surgery would be to rule out appendicitis/treat appendicitis. It also would rule out a neoplasm and remove future diagnostic uncertainty. If she had chosen to continue medical management or observation, in the future, she would need a colonoscopy and a repeat CT scan to ensure that her appendix appeared normal, and she was not willing to do that. At this point, will resume Zosyn antibiotic and treat for appendicitis. I will make plans for surgery. Risks and benefits of surgery have been explained to the patient in detail. These are including, but not limited to, the possibility of conversion to open, the possibility of injury to viscera or bladder, the possibility of blood loss requiring blood transfusion, the possibility of future obstruction, the possibility of future hernia, the possibility this is not appendicitis, plus a multitude of medical risks including, but not limited to, cardiac, neurologic, pulmonary, and vascular complications, even . The patient understands these risks and is agreeable to surgery. DO SEBASTIÁN PURCELL/[id number]
[2018-05-14] MEDS ORDERED: ACETAMINOPHEN INJECTION 100 ML IVPB ONE (11:39)
--- NOTE | 2018-05-14 11:50 | OP ---
DATE OF OPERATION: 05/14/2018 PREOPERATIVE DIAGNOSIS: Early Acute Appendicitis. POSTOPERATIVE DIAGNOSIS: Early Acute Appendicitis. PROCEDURE: Laparoscopic appendectomy and lavage. SURGEON: Mu Pisano DO SLIVER FORMER: There is no staffing assistant. ANESTHESIA: Delio Luna MD (general) BRIEF HISTORY: This is a 22-year-old female who was admitted to [facility] for possible early acute appendicitis. She had right lower quadrant pain and leukocytosis, and a CT scan normal appendix. She was started on antibiotics. She presents normal for surgery. DESCRIPTION OF PROCEDURE: The patient was placed in supine procedure. After general anesthesia was initiated, the abdomen was prepped and draped in sterile fashion. A Lockhart catheter was inserted. Next, a vertical incision was made infraumbilical with scalpel used to go through the skin and subcutaneous tissue. The fascia was then lifted with Caryn clamp and incised vertically. The peritoneum was then entered bluntly. Next, a 0 Vicryl stitch was placed across the fascial defect and used to secure the Razo trocar. Pneumoperitoneum was then created followed by insertion of a 5-mm 30-degree laparoscope. Next, two 5-mm trocars were placed, one in the left lower quadrant and one suprapubic. Attention was then turned towards the appendix. It was seen. It was mildly injected, consistent with early acute appendicitis. A window was made at its base. A LigaSure device was used to divide the mesoappendix with multiple welts. Then, an Ethicon Purple Load 60-mm stapler was used to divide the appendix at its base with the cecum in one firing. The staple line was inspected. It was intact. There was no bleeding, no breaks, no sign of ischemia. The appendix was placed in a specimen bag, removed through the infraumbilical trocar site and sent to Pathology marked as specimen. A limited lavage was done, and all return was clear. Both ovaries were inspected. There was no evidence of PID. The uterus appeared to be normal. There were no ovarian cysts, and the gallbladder was gloria-egg blue. At this point, trocars were removed under direct visualization, and no bleeding was noted as pneumoperitoneum was released. The fascia at the infraumbilical trocar site was then closed with multiple interrupted 0 Vicryl sutures, and the 3 skin incisions were closed with Biosyn, and Dermabond dressing was placed. Overall, the patient tolerated the procedure well. There were no complications. Lockhart catheter that was placed at the beginning of the operation was removed at the end, and the patient was sent to recovery room in stable condition. Blood loss was minimal. Appendix was the specimen. Drains none. DO SEBASTIÁN PURCELL/[id number] MTDD
[2018-05-14] MEDS: D5-1/2NS+20 MEQ KCL - 20 MEQ/1,000 ML INFUS.BAG IV SCH (13:30)
[2018-05-14] MEDS: morphine SULFATE 4 MG/ML VIAL IVPB PRN ×2 (14:16→21:23)
--- NOTE | 2018-05-14 14:38 | PN ---
Teaching Attending Note Name of Resident: Meliton Bentley ATTENDING PHYSICIAN STATEMENT I saw and evaluated the patient. I reviewed the resident's note and discussed the case with the resident. I agree with the resident's findings and plan as documented. SUBJECTIVE: seen in am , before her surgery. reported RLQ pain , no fever or chills. was at urgent care on 05/07 for same RLQ pain and was told she had mild UTI and was treated with cranberry juice. denies dysuria , or urinary frequency. no hematuria or change in urine color OBJECTIVE: NAD Cv: RRR Lungs: CTAB e xt: no edema Abd: soft , ND, TTP in RLQ, + Mcburney's . Neg Obturaor's , Neg Rovsing sign ASSESSMENT AND PLAN: 22 y/o lady with no significant PMH, who presented with RLQ pain and was found to have early acute appendicitis . 1- RLQ pain, due to early appendicitis. Now s/p appendectomy with signs of inflammation on visualization of appendix. - despite UA indicating pyuria , UI seems unlikely due to no urinary sx and due to above findings - will try to obtain more details about urgent care visit. - no need for Abx after appendectomy as there was no perforation or abscess - regular diet - pain control - IVF - home in am if cont to do well
--- NOTE | 2018-05-14 16:20 | PN ---
Physical Exam: SUBJECTIVE: Patient seen and examined at bedside. Complains of RLQ pain, no further n/v. Has had chills. OBJECTIVE: Vital Signs Period Temp Pulse Resp BP Sys/[place] Pulse Ox Last 24 Hr 97.9 F-98.8 F 57-85 15-20 96-124/57-89 97-100 GENERAL: A&Ox3, NAD HEAD: NC/AT EYES: PERRLA, EOMI ENT: oropharynx clear without exudates, moist mucous membranes NECK: Trachea midline, full range of motion, supple. LUNGS: CTA b/l HEART: RRR no m/r/g ABDOMEN: Soft, nondistended, tender in RLQ, tender at McBurney's point, neg Rovsing, neg Psoas, positive Obturator EXTREMITIES: 2+ pulses, warm, well-perfused, no edema. NEUROLOGICAL: no focal deficits, gait not observed. Laboratory Results - last 24 hr 05/13/18 05/13/18 05/13/18 18:20 18:20 18:20 WBC 12.3 H RBC 4.70 Hgb 13.7 Hct 41.7 MCV 88.8 MCH 29.1 MCHC 32.8 RDW 13.4 Plt Count 271 MPV 9.8 Absolute Neuts (auto) 8.1 H Neutrophils % 65.7 D Lymphocytes % 25.9 D Monocytes % 4.1 Eosinophils % 4.1 Basophils % 0.2 Nucleated RBC % 0 PT with INR INR Sodium 141 Potassium 4.0 Chloride 105 Carbon Dioxide 28 Anion Gap 8 BUN 11 Creatinine 0.7 Creat Clearance w eGFR > 60 Random Glucose 85 Calcium 8.9 Phosphorus Magnesium Total Bilirubin 0.5 AST 25 ALT 61 Alkaline Phosphatase 86 Total Protein 7.8 Albumin 4.1 Lipase 70 L Urine Color Yellow Urine Appearance Slcloudy Urine pH 6.0 Ur Specific [place] 1.017 Urine Protein 1+ H Urine Glucose (UA) Negative Urine Ketones Trace H Urine Blood 1+ H Urine Nitrite Negative Urine Bilirubin Negative Urine Urobilinogen Negative Ur Leukocyte Esterase 1+ H Urine WBC (Auto) 39 Urine RBC (Auto) 37 Ur Epithelial Cells Rare Urine Bacteria Rare Urine Mucus Rare Urine Yeast Few Urine HCG, Qual Negative Blood Type Antibody Screen 05/13/18 05/13/18 05/14/18 22:10 22:10 00:35 WBC RBC Hgb Hct MCV MCH MCHC RDW Plt Count MPV Absolute Neuts (auto) Neutrophils % Lymphocytes % Monocytes % Eosinophils % Basophils % Nucleated RBC % PT with INR 13.00 INR 1.15 H Sodium Potassium Chloride Carbon Dioxide Anion Gap BUN Creatinine Creat Clearance w eGFR Random Glucose Calcium Phosphorus Magnesium Total Bilirubin AST ALT Alkaline Phosphatase Total Protein Albumin Lipase Urine Color Urine Appearance Urine pH Ur Specific [place] Urine Protein Urine Glucose (UA) Urine Ketones Urine Blood Urine Nitrite Urine Bilirubin Urine Urobilinogen Ur Leukocyte Esterase Urine WBC (Auto) Urine RBC (Auto) Ur Epithelial Cells Urine Bacteria Urine Mucus Urine Yeast Urine HCG, Qual Blood Type A POSITIVE A POSITIVE Antibody Screen Negative 05/14/18 05/14/18 07:08 07:08 WBC 9.7 RBC 4.24 Hgb 12.4 Hct 37.7 MCV 89.0 MCH 29.2 MCHC 32.8 RDW 13.6 Plt Count 203 D MPV 10.4 Absolute Neuts (auto) 5.6 Neutrophils % 57.8 Lymphocytes % 29.6 Monocytes % 6.0 Eosinophils % 6.2 H Basophils % 0.4 Nucleated RBC % 0 PT with INR INR Sodium 142 Potassium 4.0 Chloride 108 H Carbon Dioxide 27 Anion Gap 7 L BUN 9 Creatinine 0.7 Creat Clearance w eGFR > 60 Random Glucose 85 Calcium 8.0 L Phosphorus 4.3 Magnesium 2.2 Total Bilirubin 0.6 AST 25 ALT 47 Alkaline Phosphatase 76 D Total Protein 6.3 L Albumin 3.1 L Lipase Urine Color Urine Appearance Urine pH Ur Specific [place] Urine Protein Urine Glucose (UA) Urine Ketones Urine Blood Urine Nitrite Urine Bilirubin Urine Urobilinogen Ur Leukocyte Esterase Urine WBC (Auto) Urine RBC (Auto) Ur Epithelial Cells Urine Bacteria Urine Mucus Urine Yeast Urine HCG, Qual Blood Type Antibody Screen Active Medications Generic Name Dose Route Start Last Admin Trade Name Freq PRN Reason Stop Dose Admin Acetaminophen 650 mg 05/14/18 09:56 Tylenol - PO Q4H PRN FEVER Acetaminophen 1,000 mg 05/14/18 11:54 Ofirmev Injection - IVPB Q6H PRN PAIN LEVEL 1-5 Albuterol Sulfate 1 - 2 puff 05/14/18 11:54 Ventolin Hfa Inhaler - IH Q4H PRN SHORTNESS OF BREATH Enoxaparin Sodium 40 mg 05/14/18 12:30 Lovenox - SQ DAILY MANNIE Potassium Chloride/Dextrose/Sod Cl 20 meq in 1,000 mls @ 83 mls/hr 05/14/18 10 :00 05/14/18 13:30 D5-1/2ns+20 Meq Kcl - IV Not Given ASDIR MANNIE Morphine Sulfate 4 mg 05/14/18 09:56 05/14/18 14:16 Morphine Sulfate IVPB 4 mg Q3H PRN Administration PAIN LEVEL 7 - 10 Ondansetron HCl 4 mg 05/14/18 09:56 Zofran Injection IVPUSH Q6H PRN NAUSEA Oxycodone HCl 7.5 mg 05/14/18 09:56 Roxicodone - PO Q4H PRN PAIN LEVEL 4 - 6 Pantoprazole Sodium 40 mg 05/14/18 10:00 Protonix Iv IVPUSH DAILY MANNIE ASSESSMENT/PLAN: 22 y/o F w/ PMHx asthma p/w RLQ pain, admitted for suspected appendicitis #appendicitis s/p appendectomy -on admission 12.3 WBC, PE findings as above, CT A/P showing hyperemic appendiceal wall -clinical presentation + imaging warranted appendectomy -underwent lap appendectomy w/ Dr. Westfall -D5 1/2 NS + 20meqKCL @83 -morphine 4 q3 PRN 7-10 pain -Oxy 7.5 q4 PRN 4-6 pain -Zofran PRN -restarted Lovenox #FEN -D5 1/2 NS + 20meqKCL @83 -monitor and replete as necessary -regular diet #DVT PPx -Lovenox #dispo -med/surg Visit type - Emergency Visit Emergency Visit: Yes ED Registration Date: 05/13/18 Care time: The patient presented to the Emergency Department on the above date and was hospitalized for further evaluation of their emergent condition. - New Patient This patient is new to me today: Yes Date on this admission: 05/14/18 - Critical Care Critical Care patient: No
[2018-05-14] MEDS: ENOXAPARIN NA (PORCINE) 40 MG/0.4 ML DISP.SYRIN SQ SCH (17:10)
[2018-05-14] MEDS: PANTOPRAZOLE SODIUM 40 MG VIAL IVPUSH SCH (17:15)
[2018-05-14 19:44] VITALS: BMI 29.9
[2018-05-14] MEDS ORDERED: RANITIDINE HCL 150 MG TABLET (FP) PO ONE (23:56)
[2018-05-15 07:04] LABS: BASO % 0.2 % (0-2.0); EOS % 0.5 % (0-4.5); HEMATOCRIT 36.3 % (32.4-45.2); HEMOGLOBIN 11.9 GM/dL (10.7-15.3); LYMPH % 26.1 % (8-40); MCH 28.8 pg (25.7-33.7); MCHC 32.7 g/dl (32.0-36.0); MEAN PLT VOLUME 9.9 fl (7.5-11.1); MONO % 5.3 % (3.8-10.2); NEUT % 67.9 % (42.8-82.8); PLATELET COUNT 227 K/MM3 (134-434); RBC 4.12 M/mm3 (3.60-5.2); RDW 13.7 % (11.6-15.6); WHITE BLOOD COUNT 11.7 K/mm3 (4.0-10.0)
[2018-05-15 07:57] LABS: ANION GAP 10 MMOL/L (8-16); BLOOD UREA NITROGEN 8 mg/dL (7-18); CALCIUM 8.5 mg/dL (8.5-10.1); CHLORIDE 105 mmol/L (98-107); CO2 27 mmol/L (21-32); CREATININE 0.6 mg/dL (0.55-1.02); GLUCOSE,RANDOM 119 mg/dL (74-106); MAGNESIUM 2.2 mg/dL (1.8-2.4); PHOSPHOROUS 4.1 mg/dL (2.5-4.9); POTASSIUM 3.9 mmol/L (3.5-5.1); SODIUM 142 mmol/L (136-145)
--- NOTE | 2018-05-15 08:50 | PN ---
Teaching Attending Note Name of Resident: Meliton Bentley ATTENDING PHYSICIAN STATEMENT I saw and evaluated the patient. I reviewed the resident's note and discussed the case with the resident. I agree with the resident's findings and plan as documented. SUBJECTIVE: Patient has mild pain, no acute distress, no shortness of breath. OBJECTIVE: Vital Signs Temperature 98.3 F 05/15/18 06:00 Pulse Rate 59 L 05/15/18 06:00 Respiratory Rate 20 05/15/18 06:00 Blood Pressure 111/55 05/15/18 06:00 O2 Sat by Pulse Oximetry (%) 97 05/14/18 21:00 CBCD WBC 11.7 K/mm3 (4.0-10.0) H 05/15/18 06:15 RBC 4.12 M/mm3 (3.60-5.2) 05/15/18 06:15 Hgb 11.9 GM/dL (10.7-15.3) 05/15/18 06:15 Hct 36.3 % (32.4-45.2) 05/15/18 06:15 MCV 88.0 fl (80-96) 05/15/18 06:15 MCHC 32.7 g/dl (32.0-36.0) 05/15/18 06:15 RDW 13.7 % (11.6-15.6) 05/15/18 06:15 Plt Count 227 K/MM3 (134-434) 05/15/18 06:15 MPV 9.9 fl (7.5-11.1) 05/15/18 06:15 CMP Sodium 142 mmol/L (136-145) 05/15/18 06:15 Potassium 3.9 mmol/L (3.5-5.1) 05/15/18 06:15 Chloride 105 mmol/L (98-107) 05/15/18 06:15 Carbon Dioxide 27 mmol/L (21-32) 05/15/18 06:15 Anion Gap 10 MMOL/L (8-16) 05/15/18 06:15 BUN 8 mg/dL (7-18) 05/15/18 06:15 Creatinine 0.6 mg/dL (0.55-1.02) 05/15/18 06:15 Creat Clearance w eGFR > 60 (>60) 09/12/18 06:15 Random Glucose 119 mg/dL (74-106) H 05/15/18 06:15 Calcium 8.5 mg/dL (8.5-10.1) 05/15/18 06:15 Total Bilirubin 0.6 mg/dL (0.2-1.0) 05/14/18 07:08 AST 25 U/L (15-37) 05/14/18 07:08 ALT 47 U/L (12-78) 05/14/18 07:08 Alkaline Phosphatase 76 U/L (45-117) D 05/14/18 07:08 Total Protein 6.3 g/dl (6.4-8.2) L 05/14/18 07:08 Albumin 3.1 g/dl (3.4-5.0) L 05/14/18 07:08 PE: per resident's note ASSESSMENT AND PLAN: 22 y/o lady with no significant PMH, who presented with RLQ pain and was found to have early acute appendicitis . # POD #1 s/p appendectomy by follow with the surgeon tolerated diet well ,regular diet , tylenol for pain Discharge patient home.
--- NOTE | 2018-05-15 09:32 | PN ---
Progress Note (short form) - Note Progress Note: surgery pt seen and examined. feels well. no pain. tolerating diet. voiding. ambulating afebrile abd- soft, nt, inicisons clean Plan- surgically stable for d/c. no surgical need for abx or narcotics. f/u in [address], no lifting, 2 weeks off work. uti per medical team.
[2018-05-15] MEDS: ENOXAPARIN NA (PORCINE) 40 MG/0.4 ML DISP.SYRIN SQ SCH (10:25)
[2018-05-15] MEDS: PANTOPRAZOLE SODIUM 40 MG VIAL IVPUSH SCH (10:25)
[2018-05-15] MEDS: D5-1/2NS+20 MEQ KCL - 20 MEQ/1,000 ML INFUS.BAG IV SCH (10:32)
--- NOTE | 2018-05-15 12:14 | DS ---
Physical Exam: SUBJECTIVE: Patient seen and examined at bedside. No complaints, pain well- controlled. Urinating and passing flatus. OBJECTIVE: Vital Signs Period Temp Pulse Resp BP Sys/[place] Pulse Ox Last 24 Hr 97.9 F-98.3 F 54-67 15-20 99-130/53-73 97-98 PHYSICAL EXAM GENERAL: A&Ox3, NAD HEAD: NC/AT EYES: PERRLA, EOMI ENT: oropharynx clear without exudates, moist mucous membranes NECK: Trachea midline, full range of motion, supple. LUNGS: CTA b/l HEART: RRR no m/r/g ABDOMEN: Soft, nondistended, mild lower abdominal TTP EXTREMITIES: 2+ pulses, warm, well-perfused, no edema. NEUROLOGICAL: no focal deficits, gait not observed. LABS Laboratory Results - last 24 hr 05/15/18 05/15/18 06:15 06:15 WBC 11.7 H RBC 4.12 Hgb 11.9 Hct 36.3 MCV 88.0 MCH 28.8 MCHC 32.7 RDW 13.7 Plt Count 227 MPV 9.9 Absolute Neuts (auto) 8.0 Neutrophils % 67.9 Lymphocytes % 26.1 Monocytes % 5.3 Eosinophils % 0.5 D Basophils % 0.2 Nucleated RBC % 0 Sodium 142 Potassium 3.9 Chloride 105 Carbon Dioxide 27 Anion Gap 10 BUN 8 Creatinine 0.6 Creat Clearance w eGFR > 60 Random Glucose 119 H Calcium 8.5 Phosphorus 4.1 Magnesium 2.2 IMAGING: CT a/p 05/13/18: "The appendiceal wall demonstrates an equivocal slightly hyperemic appearance. the appendix otherwise appears unremarkable. Clinical/ laboratory correlation is suggested in regards the possibility of early subtle acute appendicitis. Prominent diffuse hepatic steatosis. A mildly prominent retroperitoneal pericaval lymph node is seen. Correlate with 3 month follow-up MRI or CT to document stability/resolution. Several mildly prominent right lower quadrant mesenteric lymph nodes are also noted." HOSPITAL COURSE: Date of Admission:05/13/18 Patient is a 22 y/o F p/w with RLQ pain and leukocytosis, admitted for likely appendicitis based on clinical presentation. Given one dose of Zosyn emergently. Surgery was consulted. [employer]QU[employer] COMPOUNDER was also consulted and ruled out gynecologic etiologies. Imaging as per above. Underwent laparoscopic appendectomy on 05/14/[address] Pisano. Operative evaluation confirmed the pre -op diagnosis of early appendicitis. The patient recovered well and was discharged the following day without need for ABx or narcotics. She was scheduled for follow up with Dr. Pisano and her primary care doctor 2 weeks after discharge. Additionally, given the incidental CT finding of hepatic steatosis and abdominal lymphadenopathy, 1 month follow up with gastroenterology was also scheduled. Date of Discharge: 05/15/18 Minutes to complete discharge: 40 Discharge Summary Reason For Visit: APPENDICITIS, ABDOMINAL PAIN Current Active Problems Appendicitis (Acute) Condition: Stable - Instructions Diet, Activity, Other Instructions: You were hospitalized for appendicitis and underwent an appendectomy. Imaging studies of your abdomen revealed that you have liver steatosis (fat in your liver) and enlarged lymph nodes in your abdomen. You will need outpatient follow up of these findings, Liver US and CT of abdomen recommended. Referrals Please follow up with your surgeon, Dr. Pisano, 2 weeks after your discharge. A referral has been made on your behalf. Please follow up with your primary doctor, Dr. Brambila, and with the GI doctor, Dr. Monreal, one month after discharge. Referrals have been made on your behalf. Medications You may take Tylenol to assist in controlling pain. Please read the label carefully and do not exceed the maximum allowed dosage. Please keep a diet that is low in fat and excess carbohydrates. If you experience any fever, chills, nausea, vomiting, recurrence of your abdominal pain, diarrhea, or any other new symptoms, please return to the Emergency Department immediately. Referrals: Suresh Brambila MD [Primary Care Provider] - 2 Weeks Josué Monreal MD [Staff Physician] - 1 Month Mu Pisano MD [Staff Physician] - 2 Weeks Disposition: HOME - Home Medications Comprehensive Discharge Medication List: Ambulatory Orders Albuterol Sulfate Inhaler - [Ventolin HFA Inhaler -] 1 - 2 inh PO Q4H 05/13/18 This patient is new to me today: No Emergency Visit: No Critical Care patient: No - Discharge Referral Referred to [facility] No
--- NOTE | 2018-05-15 12:27 | PATH ---
Surgical Pathology Report Patient Name: ART ROMERO [facility]. Rec. #: [id number] /Age/Gender: 1995 (Age: 22) / F Account: [id number] Location: [address] [place] [address] Taken: 05/14/2018 Received: 05/14/2018 Reported: 05/15/2018 Physicians: Mu Pisano M.D. PHYSICIAN EMERGENCY DEPT Specimen(s) Received APPENDIX Clinical History Appendicitis, abdominal pain Final Diagnosis APPENDIX, LAPAROSCOPIC APPENDECTOMY: ACUTE APPENDICITIS. Electronically Signed Carmelita Espana M.D. Gross Description Received in formalin, labeled "appendix," is a 9 cm. in length vermiform appendix with a stapled margin of resection and moderate attached fat. The serosa is borjas-singer and smooth. Sectioning reveals a focally hemorrhagic lumen. The wall of the appendix averages 0.1 cm. in thickness. Travel Med Surg Rn sections are submitted in one cassette. /05/14/2018 saudi05/14/2018
[2018-05-15 12:59] VITALS: BP 99/63; PULSE 61; TEMP 98.8
== END 2018-05-15 13:36 | disposition home or self-care (01) | DRG 342 ==
LOC: JER 17:37 → JERBED 22:45 → UNDOADMIN 23:12 → J5S 05-14 13:30
PROVIDERS: ADMIT Internal Medicine; ATTEND Internal Medicine
PROC: 0DTJ4ZZ Resection of Appendix, Percutaneous Endoscopic Approach (ICD-10-PCS; principal; 2018-05-14 08:30)
DX: K35.80 Unspecified acute appendicitis (principal); N39.0 Urinary tract infection, site not specified; R10.31 Right lower quadrant pain; D72.829 Elevated white blood cell count, unspecified
CPT/HCPCS: 36415; 74177-TC; 80048; 80053; 81003; 81015; 83690; 83735; 84100; 84703; 85025; 85610; 86850; 86900; 86901; 87086; 87491; 87591; 88304-TC; 94760; 99285-25; J0131; J7030

== ENCOUNTER 2023-08-13 15:48 | Emergency (ER) | payer OTHER ==
[2023-08-13 16:02] VITALS: BP 119/68; PULSE 57; RESP 18; TEMP 97.7; BMI 30.4
[2023-08-13] MEDS ORDERED: ACETAMINOPHEN 1000 MG/100 ML BAG IVPB ONE (17:10)
[2023-08-13] MEDS ORDERED: ACETAMINOPHEN 325 MG TABLET (FP) ONE (17:15)
[2023-08-13] MEDS ORDERED: ACETAMINOPHEN 500 MG TABLET (FP) PO ONE (17:15)
[2023-08-13] MEDS ORDERED: FAMOTIDINE 20 MG TABLET ONE (17:15)
[2023-08-13] MEDS ORDERED: FAMOTIDINE 10 MG TABLET PO ONE (17:15)
[2023-08-13 17:58] LABS: BASO % 0.4 % (0-2.0); EOS % 3.9 % (0-4.5); HEMATOCRIT 38.7 % (32.4-45.2); HEMOGLOBIN 12.9 GM/dL (10.7-15.3); LYMPH % 34.5 % (8-40); MCH 29.7 pg (25.7-33.7); MCHC 33.2 g/dl (32.0-36.0); MEAN CELL VOLUME 89.2 fl (80-96); MEAN PLT VOLUME 9.9 fl (7.5-11.1); MONO % 5.3 % (3.8-10.2); NEUT % 55.9 % (42.8-82.8); PLATELET COUNT 253 10^3/uL (134-434); RBC 4.34 M/mm3 (3.60-5.2); RDW 13.4 % (11.6-15.6); WHITE BLOOD COUNT 9.6 K/mm3 (4.0-10.0)
[2023-08-13 18:32] LABS: POTASSIUM 3.8 mmol/L (3.5-5.1)
[2023-08-13 18:34] LABS: ALBUMIN 3.5 g/dl (3.4-5.0); BLOOD UREA NITROGEN 18.1 mg/dL (7-18); CALCIUM 8.2 mg/dL (8.5-10.1)
[2023-08-13 18:37] LABS: CREATININE 0.9 mg/dL (0.55-1.3)
[2023-08-13 18:39] LABS: BILIRUBIN,TOTAL 0.3 mg/dL (0.2-1)
[2023-08-13] MEDS ORDERED: LIDOCAINE 5% TOPICAL PATCH TP ONE (19:32)
[2023-08-13] MEDS ORDERED: LIDOCAINE 4% PATCH TP ONE (19:58)
[2023-08-13] MEDS ORDERED: LIDOCAINE PATCH REMOVAL MC SCH (22:00)
== END 2023-08-13 20:47 | disposition home or self-care (01) ==
LOC: JER 15:48
DX: M54.2 Cervicalgia (principal); R51.9 Headache, unspecified; R20.2 Paresthesia of skin; R07.81 Pleurodynia; M79.10 Myalgia, unspecified site; Z20.822 Contact with and (suspected) exposure to COVID-19
CPT/HCPCS: 0241U-QW; 36415; 71046-TC-FY; 80053; 84484; 84703; 85025; 87086; 87186; 93005; 93010; 99285-25

== ENCOUNTER 2024-05-26 19:03 | Emergency (ER) | payer OTHER ==
[2024-05-26 19:42] VITALS: BP 119/80; PULSE 58; RESP 20; TEMP 98.1; BMI 30.6
[2024-05-26] MEDS ORDERED: ACETAMINOPHEN 325 MG TABLET (FP) ONE (22:13)
[2024-05-26] MEDS ORDERED: METHOCARBAMOL 500 MG TABLET ONE (22:13)
[2024-05-26] MEDS ORDERED: LIDOCAINE 5% TOPICAL PATCH ONE (22:13)
[2024-05-26] MEDS: LIDOCAINE PATCH REMOVAL MC SCH (22:17)
[2024-05-26] MEDS: LIDOCAINE 4% PATCH TP ONE (22:17)
[2024-05-26] MEDS: METHOCARBAMOL 500 MG TABLET PO ONE (22:18)
[2024-05-26] MEDS: ACETAMINOPHEN 500 MG TABLET (FP) PO ONE (22:18)
== END 2024-05-26 23:45 | disposition home or self-care (01) ==
LOC: JER 19:03
DX: R51.9 Headache, unspecified (principal); M54.2 Cervicalgia; M54.9 Dorsalgia, unspecified; R61 Generalized hyperhidrosis; R13.10 Dysphagia, unspecified
CPT/HCPCS: 84703; 93005; 93010; 99284-25

== ENCOUNTER 2024-09-20 16:13 | Emergency (ER) | payer OTHER ==
[2024-09-20 16:21] VITALS: BP 110/73; PULSE 98; RESP 20; TEMP 99.8; BMI 27.7
[2024-09-20] MEDS ORDERED: ACETAMINOPHEN INJECTION 100 ML ONE (17:49)
[2024-09-20 17:58] LABS: PH,URINE 5.5 (5.0-8.0); URINE APPEARANCE CLEAR; URINE BILIRUBIN NEGATIVE (NEGATIVE); URINE COLOR YELLOW; URINE GLUCOSE (UA) NEGATIVE (NEGATIVE); URINE KETONE TRACE (NEGATIVE); URINE LEUK ESTERASE NEGATIVE (NEGATIVE); URINE NITRITE NEGATIVE (NEGATIVE); URINE PROTEIN NEGATIVE (NEGATIVE); URINE UROBILINOGEN 0.2 mg/dL (0.2-1.0)
[2024-09-20] MEDS: SODIUM CHLORIDE 0.9% 500 ML INFUS.BAG IV ONE (18:35)
[2024-09-20] MEDS: ACETAMINOPHEN 1000 MG/100 ML BAG IVPB ONE (18:35)
[2024-09-20 18:46] LABS: BASO % 0.3 % (0-2.0); EOS % 0.5 % (0-4.5); HEMATOCRIT 37.6 % (32.4-45.2); HEMOGLOBIN 12.4 GM/dL (10.7-15.3); MCH 29.1 pg (25.7-33.7); MEAN CELL VOLUME 88.2 fl (80-96); MEAN PLT VOLUME 8.7 fl (7.5-11.1); MONO % 6.7 % (3.8-10.2); NEUT % 67.5 % (42.8-82.8); PLATELET COUNT 233 10^3/uL (134-434); RBC 4.26 M/mm3 (3.60-5.2); RDW 13.9 % (11.6-15.6); WHITE BLOOD COUNT 8.5 K/mm3 (4.0-10.0)
[2024-09-20 19:52] LABS: POTASSIUM 3.9 mmol/L (3.5-5.1)
[2024-09-20 19:54] LABS: ALBUMIN 3.5 g/dl (3.4-5.0); BLOOD UREA NITROGEN 9.6 mg/dL (7-18); CALCIUM 8.8 mg/dL (8.5-10.1)
[2024-09-20 19:58] LABS: CREATININE 0.9 mg/dL (0.55-1.3)
[2024-09-20 19:59] LABS: BILIRUBIN,TOTAL 0.3 mg/dL (0.2-1)
[2024-09-20] MEDS ORDERED: KETOROLAC TROMETHAMINE 15 MG/ML VIAL ONE (20:00)
[2024-09-20] MEDS: KETOROLAC TROMETHAMINE 30 MG/1 ML VIAL IVPUSH ONE (20:06)
[2024-09-20 21:04] LABS: HIV INTERPRETATION NEGATIVE (NEGATIVE)
== END 2024-09-20 22:55 | disposition home or self-care (01) ==
LOC: JER 16:13
PROC: 3E033NZ Introduction of Analgesics, Hypnotics, Sedatives into Peripheral Vein, Percutaneous Approach (ICD-10-PCS; principal; 2024-09-20)
PROC: 3E0333Z Introduction of Anti-inflammatory into Peripheral Vein, Percutaneous Approach (ICD-10-PCS; 2024-09-20)
DX: N39.0 Urinary tract infection, site not specified (principal); R10.9 Unspecified abdominal pain; K52.9 Noninfective gastroenteritis and colitis, unspecified
CPT/HCPCS: 36415; 74176-TC; 76830-TC; 80053; 81003; 84703; 85025; 86803; 87086; 87389; 99284-25; J0131